=== PATIENT | female | born 1930 | race African-American/Black ===

== ENCOUNTER 2017-05-31 16:12 | Emergency (ER) | payer MEDICARE, OTHER ==
--- NOTE | 2017-05-31 17:18 | ER Document Report ---
ED Medical Screen (RME) - General Chief Complaint: Urinary Problem Stated Complaint: URINARY PROBLEM Time Seen by Provider: 05/31/17 17:11 Notes: 86-year-old female patient with a 3 month history of burning on urination. She reports it comes and goes and it does not occur every day. She has seen her primary care provider several times, he has done physical exam of the genitourinary system, but no cultures by history. She did see a urologist, Dr. Anton a month ago and I would feel certain he would have cultured the urine. We do not know if an extended 4-5 day culture was ever done or just the standard to do a culture. She just finished a 10 day course of Keflex yesterday. She reports the burning on urination is worse today than usual, so a yeast introitus could be contributing to her symptoms today. A catheterized urine will be collected and the patient will go to the back for more thorough exam including a visual genital exam. I have greeted and performed a rapid initial assessment of this patient. A comprehensive ED assessment and evaluation of the patient, analysis of test results and completion of the medical decision making process will be conducted by additional ED providers. TRAVEL OUTSIDE OF THE [place] IN LAST 30 DAYS: No - Related Data Allergies/Adverse Reactions: No Known Allergies Allergy (Unverified 11/09/15 12:07) Past Medical History - Social History Chew tobacco use (# tins/day): No Frequency of alcohol use: None Drug Abuse: None - Past Medical History Cardiac Medical History: Reports: Hx Hypercholesterolemia, Hx Hypertension Denies: Hx Atrial Fibrillation Renal/ Medical History: Denies: Hx Peritoneal Dialysis Psychiatric Medical History: Denies: Hx Depression Past Surgical History: Reports: Hx Hysterectomy, Hx Orthopedic Surgery
[2017-05-31 18:15] LABS: APPEARANCE,URINE CLEAR; BILIRUBIN,URINE NEGATIVE (NEGATIVE); COLOR,URINE YELLOW; GLUCOSE, URINE NEGATIVE (NEGATIVE); KETONES,URINE NEGATIVE (NEGATIVE); LEUKOCYTE ESTERASE,URINE NEGATIVE (NEGATIVE); NITRITE,URINE NEGATIVE (NEGATIVE); PROTEIN,URINE NEGATIVE (NEGATIVE); URINE SPECIFIC GRAVITY 1.012; UROBILINOGEN,URINE NEGATIVE mg/dL (<2.0)
--- NOTE | 2017-05-31 18:29 | ER Document Report ---
ED General - General Chief Complaint: Urinary Problem Stated Complaint: URINARY PROBLEM Time Seen by Provider: 05/31/17 17:11 Notes: 86-year-old female presents with 3 months of dysuria. Constant. She has seen her primary care doctor, as well as a urologist who could not tell her what was wrong. She denies blood in her urine low back pain nausea vomiting fever. The symptoms have been constant. She has not had any difficulty with eating. She denies vaginal bleeding irritation or yeast. TRAVEL OUTSIDE OF THE [place] IN LAST 30 DAYS: No - Related Data Allergies/Adverse Reactions: No Known Allergies Allergy (Unverified 11/09/15 12:07) Past Medical History - Social History Smoking Status: Former Smoker Chew tobacco use (# tins/day): No Frequency of alcohol use: None Drug Abuse: None Family History: None Patient has suicidal ideation: No Patient has homicidal ideation: No - Past Medical History Cardiac Medical History: Reports: Hx Hypercholesterolemia, Hx Hypertension Denies: Hx Atrial Fibrillation Renal/ Medical History: Denies: Hx Peritoneal Dialysis Psychiatric Medical History: Denies: Hx Depression Past Surgical History: Reports: Hx Hysterectomy, Hx Orthopedic Surgery Review of Systems - Review of Systems Notes: REVIEW OF SYSTEMS GEN: Denies fever, chills, weight loss ENT: Denies sore throat, nasal discharge, ear pain EYES: Denies blurry vision, eye pain, discharge CV: Denies chest pain, palpitations, edema RESP: Denies cough, shortness of breath, wheezing GI: Denies abdominal pain, nausea, vomiting, diarrhea MSK: Denies joint pain/swelling, edema, SKIN: Denies rash, skin lesions LYMPH: Denies swollen glands/lymph nodes NEURO: Denies headache, focal weakness or numbness, dizziness PSYCH: Denies depression, suicidal or homicidal ideation PHYSICAL EXAMINATION General: No acute distress, well-nourished Head: Atraumatic, normocephalic ENT: Mouth normal, oropharynx moist, no exudates or tonsillar enlargement Eyes: Conjunctiva normal, pupils equal, lids normal Neck: No JVD, supple, no guarding CVS: Normal rate, regular rhythm, no murmurs Resp: No resp distress, equal and normal breath sounds bilaterally GI: Nondistended, soft, no tenderness to palpation, no rebound or guarding Ext: No deformities, no edema, normal range of motion in upper and lower ext Back: No CVA or midline TTP Skin: No rash, warm Lymphatic: No lymphadeopathy noted Neuro: Awake, alert. Face symmetric. GCS 15. Course - Re-evaluation Re-evalutation: 05/31/17 18:23 Patient presents with chronic dysuria status post evaluation by urology with no clear's cause. She was evaluated in triage and a catheterized urine was obtained. It shows some casts but no white cells. Culture has been sent. Her exam is reassuring with no fever flank tenderness or abdominal tenderness. She does not describe any vaginal irritation or pain on wiping so I think that a yeast or external infection is also unlikely. She will follow-up with her urologist and primary care provider. Insert discharge 05/31/17 18:29 05/31/17 18:29 I have discussed with the patient there likely diagnosis, aftercare plan, follow -up plans and my usual and customary return precautions. They verbalized understanding of this. - Laboratory Laboratory results interpreted by me: 05/31/17 17:40 Urine Blood SMALL H Discharge - Discharge Clinical Impression: Dysuria Condition: Good Disposition: HOME, SELF-CARE Additional Instructions: We were unable to find a dangerous cause of your burning on urination. You have had testing done at your urologist and we did more today but did not find an infection to treat. Please follow-up with your specialist regarding ongoing diagnosis and treatment of your symptoms.
[2017-05-31 18:48] VITALS: BP 143/71
== END 2017-05-31 18:48 | disposition home or self-care (01) ==
LOC: ER 16:12
DX: R30.0 Dysuria (principal); R39.198 Other difficulties with micturition; Z87.891 Personal history of nicotine dependence
CPT/HCPCS: 51701; 81001; 87086; 99283

== ENCOUNTER 2018-03-09 16:41 | Emergency (ER) | payer MEDICARE, OTHER ==
--- NOTE | 2018-03-09 16:55 | ER Document Report ---
ED Medical Screen (RME) - General Chief Complaint: Numbness of Face Stated Complaint: FACIAL NUMBNESS Time Seen by Provider: 03/09/18 16:52 Mode of Arrival: Ambulatory Information source: Patient, Relative, [facility] Records Notes: 87-year-old female presents with complaint of left-sided numbness of her face, fingers and left lower extremity. Patient states that symptoms started at 12: 00. She does report prior similar symptoms after a "mini stroke". Patient denies headache, blurred vision, slurred speech, difficulty with ambulation. I have greeted and performed a rapid initial assessment of this patient. A comprehensive ED assessment and evaluation of the patient, analysis of test results and completion of medical decision making process we will be contacted by additional ED providers. General; no acute distress Neuro; cranial nerves II through XII intact. Patient alert awake. Respiratory; no increased work of breathing TRAVEL OUTSIDE OF THE [place] IN LAST 30 DAYS: No - HPI Onset: Just prior to arrival Onset/Duration: Gradual, Persistent Quality of pain: No pain Associated Symptoms: denies: Chest pain, Headache, Shortness of breath Exacerbated by: Denies Relieved by: Denies Similar symptoms previously: Yes Recently seen / treated by doctor: Yes - Related Data Smoking: Non-smoker Frequency of alcohol use: None Drug Abuse: None Allergies/Adverse Reactions: No Known Allergies Allergy (Verified 03/09/18 16:43) Past Medical History - Past Medical History Cardiac Medical History: Reports: Hx Hypercholesterolemia, Hx Hypertension Denies: Hx Atrial Fibrillation Renal/ Medical History: Denies: Hx Peritoneal Dialysis Psychiatric Medical History: Denies: Hx Depression Past Surgical History: Reports: Hx Hysterectomy, Hx Orthopedic Surgery Doctor's Discharge - Discharge Referrals: TOMA DIXON MD [Primary Care Provider] - Follow up as needed
--- NOTE | 2018-03-09 17:25 | ER Document Report ---
ED General - General Chief Complaint: Numbness of Face Stated Complaint: FACIAL NUMBNESS Time Seen by Provider: 03/09/18 16:52 Mode of Arrival: Ambulatory Information source: Patient Notes: 87-year-old female presents emergency department with complaints of left facial , left upper extremity, and left lower extremity numbness and tingling with associated Left sided upper and lower extremity weakness. Patient says that she has chronic Left sided numbness/tingling from a previous stroke 2 years ago. This is not new today. Patient states that her left upper and lower extremity weakness started around 12-12:30 this afternoon. Patient states that the weakness resolved on its own and then presented again around 330. Patient states that the weakness is resolving currently. She states that it is improving. Patient denies being on any blood thinners. She states that she does take an aspirin daily. Patient denies any new trauma or injury. Patient denies any chest pain or shortness of breath. TRAVEL OUTSIDE OF THE [place] IN LAST 30 DAYS: No - HPI Onset: Other - 12- 12:30 then again at 3:30 Severity: Mild Pain Level: 1 Associated symptoms: None Exacerbated by: Denies Relieved by: Denies Similar symptoms previously: Yes Recently seen / treated by doctor: No - Related Data Allergies/Adverse Reactions: No Known Allergies Allergy (Verified 03/09/18 16:43) Past Medical History - General Information source: Patient, Relative, [facility] Records - Social History Smoking Status: Former Smoker Frequency of alcohol use: None Drug Abuse: None Family History: None, Reviewed & Not Pertinent - Past Medical History Cardiac Medical History: Reports: Hx Hypercholesterolemia, Hx Hypertension Denies: Hx Atrial Fibrillation Renal/ Medical History: Denies: Hx Peritoneal Dialysis Psychiatric Medical History: Denies: Hx Depression Past Surgical History: Reports: Hx Hysterectomy, Hx Orthopedic Surgery Review of Systems - Review of Systems Constitutional: No symptoms reported EENT: No symptoms reported Cardiovascular: No symptoms reported Respiratory: No symptoms reported Gastrointestinal: No symptoms reported Genitourinary: No symptoms reported Musculoskeletal: No symptoms reported Skin: No symptoms reported Neurological/Psychological: Numbness, Tingling -: Yes All other systems reviewed and negative Physical Exam - Notes Notes: PHYSICAL EXAMINATION: GENERAL: Well-appearing, well-nourished and in no acute distress. HEAD: Atraumatic, normocephalic. EYES: Pupils equal round and reactive to light, extraocular movements intact, conjunctiva are normal. ENT: Nares patent, oropharynx clear without exudates. Moist mucous membranes. NECK: Normal range of motion, supple without lymphadenopathy LUNGS: Breath sounds clear to auscultation bilaterally and equal. No wheezes rales or rhonchi. HEART: Regular rate and rhythm without murmurs ABDOMEN: Soft, nontender, nondistended abdomen. No guarding, no rebound. No masses appreciated. Female : deferred Musculoskeletal: Normal range of motion, no pitting or edema. No cyanosis. NEUROLOGICAL: Cranial nerves grossly intact. Normal speech, normal gait. Altered sensation in the LUE and LLE. PSYCH: Normal mood, normal affect. SKIN: Warm, Dry, normal turgor, no rashes or lesions noted. Course - Re-evaluation Re-evalutation: 03/09/18 17:25 NIH stroke score of 1. EKG: Ventricular rate 57, NV interval 148, QRS duration 100, QTc 409, sinus rhythm, left anterior fascicular block, no ischemic changes. 03/09/18 18:27 Discussed results with the patient. Old strokes appreciated on the head CT. I told the patient I wanted to admit her for a stroke workup. Patient declines admission. Wants to go home. I told the patient she would need to leave AGAINST MEDICAL ADVICE. Patient has decision-making capacity. She understands that her condition may worsen or she may by leaving AGAINST MEDICAL ADVICE. Patient instructed to follow-up with her primary care physician this week, to continue taking her medications as directed, and to return to the emergency department immediately for any worsening symptoms. Patient is agreeable with plan of care - Laboratory Result Diagrams: 03/09/18 17:19 03/09/18 17:19 Laboratory results interpreted by me: 03/09/18 03/09/18 17:19 17:19 WBC 3.1 L RBC 3.34 L Hgb 10.3 L Hct 30.8 L RDW 15.4 H Absolute Neutrophils 1.3 L BUN 34 H Creatinine 1.43 H Est GFR ( Amer) 42 L Est GFR (Non-Af Amer) 35 L Direct Bilirubin 0.6 H Discharge - Discharge Clinical Impression: CVA (cerebral vascular accident) Qualifiers: CVA mechanism: unspecified Qualified Code(s): I63.9 - Cerebral infarction, unspecified Condition: Serious Disposition: AGAINST MEDICAL ADVICE Referrals: TOMA DIXON MD [Primary Care Provider] - Follow up as needed
--- NOTE | 2018-03-09 17:29 | RADIOLOGY REPORT (SQ) ---
EXAM DESCRIPTION: CT HEAD WITHOUT COMPLETED DATE/TIME: 03/09/2018 5:04 pm REASON FOR STUDY: Left-sided paresthesia COMPARISON: CT brain 11/09/2015 MRI brain 11/09/2015 TECHNIQUE: Axial images acquired through the brain without intravenous contrast. Images reviewed wi th bone, brain and subdural windows. Additional sagittal and coronal reconstructions were generated. Images stored on PACS. All CT scanners at this facility use dose modulation, iterative reconstruction, and/or weight based d osing when appropriate to reduce radiation dose to as low as reasonably achievable (ALARA). [facility]: Dose Right [facility]: CareDose [facility]: Dose Right [facility]: Teradose 4D [facility]: [employer] RADIATION DOSE: CT Rad equipment meets quality standard of care and radiation dose reduction techniq ues were employed. CTDIvol: 53.2 mGy. DLP: 1044 mGy-cm. mGy. LIMITATIONS: None. FINDINGS: VENTRICLES: Normal size and contour. CEREBRUM: Since the prior imaging in 2015, patient has developed a chronic appearing right inferior t emporal lobe infarct extending into the occipital cortex and subcortical white matter. This best jackeline wn on axial images 15-17. Old lacunar infarcts in the right thalamus. Moderate small vessel ischemic change in the bifrontal and biparietal white matter. No CT evidence of acute large territory ischemic change, acute intracranial hemorrhage, mass effect, or midline shift. CEREBELLUM: No masses. No hemorrhage. No alteration of density. No evidence for acute infarction. EXTRAAXIAL SPACES: No fluid collections. No masses. ORBITS AND GLOBE: No intra- or extraconal masses. Normal contour of globe without masses. CALVARIUM: No fracture. PARANASAL SINUSES: No fluid or mucosal thickening. SOFT TISSUES: No mass or hematoma. OTHER: No other significant finding. IMPRESSION: Old infarcts in the right inferior temporal lobe and occipital lobe, old lacunar infarct s in the right thalamus. EVIDENCE OF ACUTE STROKE: NO. COMMENT: Quality ID # [id number]: Final reports with documentation of one or more dose reduction techniques (e.g., Automated exposure control, adjustment of the mA and/or kV according to patient size, use of iterative reconstruction technique) TECHNICAL DOCUMENTATION: JOB ID: [id number] [employer]- All Rights Reserved Reading location - IP/workstation name: [email or web address]
--- NOTE | 2018-03-09 17:30 | RADIOLOGY REPORT (SQ) ---
EXAM DESCRIPTION: CHEST SINGLE VIEW COMPLETED DATE/TIME: 03/09/2018 5:19 pm REASON FOR STUDY: Left-sided paresthesia COMPARISON: AP chest 11/09/2015 EXAM PARAMETERS: NUMBER OF VIEWS: One view. TECHNIQUE: Single frontal radiographic view of the chest acquired. RADIATION DOSE: NA LIMITATIONS: None. FINDINGS: LUNGS AND PLEURA: No opacities, masses or pneumothorax. No pleural effusion. MEDIASTINUM AND HILAR STRUCTURES: No masses. Contour normal. HEART AND VASCULAR STRUCTURES: Heart normal in size. Normal vasculature. BONES: No acute findings. Osteoarthritis both shoulders HARDWARE: None in the chest. OTHER: No other significant finding. IMPRESSION: NO ACUTE RADIOGRAPHIC FINDING IN THE CHEST. TECHNICAL DOCUMENTATION: JOB ID: [id number] [employer]- All Rights Reserved Reading location - IP/workstation name: [email or web address]
[2018-03-09 17:31] LABS: ABSOLUTE LYMPHOCYTES (AUTO) 1.3 10^3/uL (0.5-4.7); ABSOLUTE MONOCYTES (AUTO) 0.4 10^3/uL (0.1-1.4); ABSOLUTE NEUT (AUTO) 1.3 10^3/uL (1.7-8.2); BASOPHILS % (AUTO) 0.3 % (0-2); EOSINOPHILS % (AUTO) 1.2 % (0-6); HEMATOCRIT 30.8 % (36.0-47.0); HEMOGLOBIN 10.3 g/dL (12.0-15.5); LYMPHOCYTES % (AUTO) 43.3 % (13-45); MEAN CORPUSCULAR HEMOGLOBIN 30.7 pg (27.0-33.4); MEAN CORPUSCULAR HGB CONC 33.3 g/dL (32.0-36.0); MEAN CORPUSCULAR VOLUME 92 fl (80-97); PLATELET COUNT 251 10^3/uL (150-450); RED BLOOD COUNT 3.34 10^6/uL (3.72-5.28); RED CELL DISTRIBUTION WIDTH 15.4 % (11.5-14.0); SEGMENTED NEUTROPHILS % (AUTO) 42.2 % (42-78); TOTAL CELLS COUNTED % (AUTO) 100 %; WHITE BLOOD COUNT 3.1 10^3/uL (4.0-10.5)
[2018-03-09 17:33] LABS: INTERNATIONAL RATION (INR) 0.99; PROTHROMBIN TIME 13.6 SEC (11.4-15.4)
[2018-03-09 17:34] LABS: PARTIAL THROMBOPLASTIN TIME 30.7 SEC (23.5-35.8)
[2018-03-09 17:51] LABS: ALANINE AMINOTRANSFERASE 12 U/L (9-52); ALBUMIN 4.1 g/dL (3.5-5.0); ALKALINE PHOSPHATASE 75 U/L (38-126); ANION GAP 9 (5-19); ASPARTATE AMINO TRANSFERASE 28 U/L (14-36); BILIRUBIN,DIRECT 0.6 mg/dL (0.0-0.4); BILIRUBIN,TOTAL 0.7 mg/dL (0.2-1.3); BLOOD UREA NITROGEN 34 mg/dL (7-20); CALCIUM 9.1 mg/dL (8.4-10.2); CARBON DIOXIDE 25 mmol/L (22-30); CHLORIDE 106 mmol/L (98-107); CREATINE KINASE 65 U/L (30-135); GLUCOSE 106 mg/dL (75-110); POTASSIUM 4.9 mmol/L (3.6-5.0); SODIUM 140.4 mmol/L (137-145)
[2018-03-09 18:01] LABS: CREATINE KINASE MB 0.53 ng/mL (<4.55)
[2018-03-09 18:04] LABS: TROPONIN I < 0.012 ng/mL
[2018-03-09 19:21] VITALS: BP 128/72
--- NOTE | 2018-03-09 19:33 | EKG REPORT ---
SEVERITY:- ABNORMAL ECG - SINUS RHYTHM LAD, CONSIDER LEFT ANTERIOR FASCICULAR BLOCK BORDERLINE R WAVE PROGRESSION, ANTERIOR LEADS : Confirmed by: Jennifer Brandt 09-Mar-2018 19:33:07
== END 2018-03-09 19:21 | disposition left against medical advice (07) ==
LOC: ER 16:41
DX: I63.9 Cerebral infarction, unspecified (principal); R20.0 Anesthesia of skin; R53.1 Weakness; Z87.891 Personal history of nicotine dependence; I10 Essential (primary) hypertension
CPT/HCPCS: 36415; 70450; 71045; 80053; 82550; 82553; 82962; 84484; 85025; 85610; 85730; 93005; 93010; 99285

== ENCOUNTER 2018-08-13 14:28 | Emergency (ER) | payer MEDICARE, OTHER ==
--- NOTE | 2018-08-13 17:01 | ER Document Report ---
ED Medical Screen (RME) - General Chief Complaint: Pain Stated Complaint: RIGHT SIDE PAIN Time Seen by Provider: 08/13/18 16:52 Primary Care Provider: TOMA DIXON MD [Primary Care Provider] - Follow up as needed Mode of Arrival: Wheelchair Notes: Patient presents to the emergency department with reports of history of stroke 2 years ago. She reports she has had nerve pain to her left side since that time. She reports increased pain to her left hand. She also reports some numbness in her left face. She complains that the pain is worse. She also complains of dizziness. Patient reports she has been seen by her provider Dr. Dixon who prescribed her some medication that made the dizziness worse. Patient quit taking it. Patient is here because she is worried she has had another stroke. She reports the numbness to her face happened at approximately 2:00 this afternoon. I have greeted and performed a rapid initial assessment of this patient. A comprehensive ED assessment and evaluation of the patient, analysis of test results and completion of the medical decision making process will be conducted by additional ED providers. TRAVEL OUTSIDE OF THE [place] IN LAST 30 DAYS: No - HPI Onset: Other - Related Data Allergies/Adverse Reactions: No Known Allergies Allergy (Verified 08/13/18 14:29) Past Medical History - Past Medical History Cardiac Medical History: Reports: Hx Hypercholesterolemia, Hx Hypertension Denies: Hx Atrial Fibrillation Renal/ Medical History: Denies: Hx Peritoneal Dialysis Psychiatric Medical History: Denies: Hx Depression Past Surgical History: Reports: Hx Hysterectomy, Hx Orthopedic Surgery Physical Exam - Vital signs Vitals: Temp Pulse Resp BP Pulse Ox 97.9 F 61 16 155/70 H 100 08/13/18 14:35 08/13/18 14:35 08/13/18 14:35 08/13/18 14:35 08/13/18 14:35 Course - Vital Signs Vital signs: Temp Pulse Resp BP Pulse Ox 97.9 F 61 16 155/70 H 100 08/13/18 14:35 08/13/18 14:35 08/13/18 14:35 08/13/18 14:35 08/13/18 14:35 Doctor's Discharge - Discharge Referrals: TOMA DIXON MD [Primary Care Provider] - Follow up as needed
[2018-08-13 17:37] LABS: APPEARANCE,URINE SLIGHTLY-CLOUDY; BILIRUBIN,URINE NEGATIVE (NEGATIVE); COLOR,URINE STRAW; GLUCOSE, URINE NEGATIVE (NEGATIVE); KETONES,URINE NEGATIVE (NEGATIVE); LEUKOCYTE ESTERASE,URINE LARGE (NEGATIVE); NITRITE,URINE NEGATIVE (NEGATIVE); PROTEIN,URINE NEGATIVE (NEGATIVE); URINE SPECIFIC GRAVITY 1.004; UROBILINOGEN,URINE NEGATIVE mg/dL (<2.0)
[2018-08-13 18:12] LABS: ABSOLUTE LYMPHOCYTES (AUTO) 1.1 10^3/uL (0.5-4.7); ABSOLUTE MONOCYTES (AUTO) 0.3 10^3/uL (0.1-1.4); ABSOLUTE NEUT (AUTO) 1.6 10^3/uL (1.7-8.2); BASOPHILS % (AUTO) 0.3 % (0-2); EOSINOPHILS % (AUTO) 0.9 % (0-6); HEMATOCRIT 32.8 % (36.0-47.0); HEMOGLOBIN 10.9 g/dL (12.0-15.5); LYMPHOCYTES % (AUTO) 34.9 % (13-45); MEAN CORPUSCULAR HGB CONC 33.3 g/dL (32.0-36.0); MEAN CORPUSCULAR VOLUME 93 fl (80-97); MONOCYTES % (AUTO) 10.3 % (3-13); PLATELET COUNT 265 10^3/uL (150-450); RED BLOOD COUNT 3.52 10^6/uL (3.72-5.28); RED CELL DISTRIBUTION WIDTH 14.4 % (11.5-14.0); SEGMENTED NEUTROPHILS % (AUTO) 53.6 % (42-78); TOTAL CELLS COUNTED % (AUTO) 100 %; WHITE BLOOD COUNT 3.1 10^3/uL (4.0-10.5)
--- NOTE | 2018-08-13 18:26 | EKG REPORT ---
SEVERITY:- ABNORMAL ECG - SINUS RHYTHM LEFT ATRIAL ABNORMALITY LEFT AXIS DEVIATION =LAFB BORDERLINE R WAVE PROGRESSION, ANTERIOR LEADS : Confirmed by: Alex Kraft MD 13-Aug-2018 18:25:29
[2018-08-13 18:34] LABS: ALANINE AMINOTRANSFERASE 13 U/L (9-52); ALBUMIN 4.3 g/dL (3.5-5.0); ALKALINE PHOSPHATASE 92 U/L (38-126); ANION GAP 12 (5-19); ASPARTATE AMINO TRANSFERASE 31 U/L (14-36); BILIRUBIN,DIRECT 0.3 mg/dL (0.0-0.4); BILIRUBIN,TOTAL 0.5 mg/dL (0.2-1.3); BLOOD UREA NITROGEN 22 mg/dL (7-20); CALCIUM 9.4 mg/dL (8.4-10.2); CARBON DIOXIDE 25 mmol/L (22-30); CHLORIDE 102 mmol/L (98-107); GLUCOSE 96 mg/dL (75-110); POTASSIUM 4.2 mmol/L (3.6-5.0); SODIUM 138.6 mmol/L (137-145); TOTAL PROTEIN 7.3 g/dL (6.3-8.2)
--- NOTE | 2018-08-13 19:20 | ER Document Report ---
ED General - General Chief Complaint: Pain Stated Complaint: RIGHT SIDE PAIN Time Seen by Provider: 08/13/18 19:20 Primary Care Provider: TOMA DIXON MD [Primary Care Provider] - Follow up as needed Mode of Arrival: Ambulatory Information source: Patient, Relative Notes: HISTORY OF PRESENT ILLNESS: Patient is a 88-year-old female with a past medical history of hypertension, hyperlipidemia, and stroke who presents with intermittent tingling to the left arm that is reminiscent of symptoms she had with her previous stroke. Location: Left arm Onset: 1 day ago Provocation: None Quality: Numbness/tingling Radiation: None Severity: Mild Timing: Intermittent Associated symptoms: No fevers or chills, cough or congestion, chest pain or shortness of breath, no ataxia or aphasia REVIEW OF SYSTEMS: CONSTITUTIONAL : Denies fever or chills, no sweats. Denies recent illness. EENT: Denies eye, ear, throat, or mouth pain or symptoms. Denies nasal or sinus congestion. CARDIOVASCULAR: Denies chest pain. RESPIRATORY: Denies cough, cold, or chest congestion. Denies shortness of breath, difficulty breathing, or wheezing. GASTROINTESTINAL: Denies abdominal pain. Denies nausea, vomiting, or diarrhea. Denies constipation. GENITOURINARY: Denies difficulty urinating, painful urination, burning, frequency, or blood in urine. Denies vaginal bleeding, abnormal or irregular periods. MUSCULOSKELETAL: Denies neck or back pain or joint pain or swelling. SKIN: Denies rash or skin lesions. HEMATOLOGIC : Denies easy bruising or bleeding. LYMPHATIC: Denies swollen, enlarged glands. NEUROLOGICAL: Positive for slight paresthesias of the left hand. Denies altered mental status or loss of consciousness. Denies headache. Denies weakness or paralysis or loss of use of either side. Denies problems with gait or speech. PSYCHIATRIC: Denies anxiety or stress or depression. All other systems reviewed and negative. PHYSICAL EXAMINATION: GENERAL: Well-appearing, well-nourished and in no acute distress. HEAD: Atraumatic, normocephalic. No scalp deformity, depression, or crepitance. EYES: Pupils are 3 mm and equal/round/reactive to light, extraocular movements intact, sclera anicteric, conjunctiva are normal. ENT: Nares patent bilaterally, oropharynx clear without exudates or palatal petechia. Moist mucous membranes. No tonsil hypertrophy. NECK: Normal range of motion, supple without lymphadenopathy. LUNGS: Breath sounds present, equal, and clear to auscultation bilaterally. No wheezes, rales, or rhonchi. HEART: Regular rate and rhythm without murmurs, rubs, or gallops. 2+ peripheral pulses. Normal capillary refill. ABDOMEN: Soft, nontender, nondistended. Normoactive bowel sounds. No guarding, no rebound. No masses appreciated. BACK: Normal contour, no midline tenderness. Rectal exam deferred. PELVC: Deferred. EXTREMITIES: Normal range of motion, no pitting or edema. No cyanosis. NEUROLOGICAL: No focal neurological deficits. Moves all extremities spontaneously and on command. PSYCH: Normal mood, normal affect. No suicidal thoughts/ideations. No homocidal thoughts/ideations. No hallucinations. SKIN: Warm, dry, normal turgor, no rashes or lesions noted. ASSESSMENT AND PLAN: This patient is a 88-year-old female who presents with subjective paresthesias to the left upper extremity, neurological exam is completely intact. 1. Will obtain labs, urine, and CT head. 2. Will reassess for discharge when workup is complete. TRAVEL OUTSIDE OF THE [place] IN LAST 30 DAYS: No - Related Data Allergies/Adverse Reactions: No Known Allergies Allergy (Verified 08/13/18 14:29) Past Medical History - General Information source: Patient, Relative - Social History Smoking Status: Never Smoker Chew tobacco use (# tins/day): No Frequency of alcohol use: None Drug Abuse: None Lives with: Family Family History: None, Reviewed & Not Pertinent Patient has suicidal ideation: No Patient has homicidal ideation: No - Past Medical History Cardiac Medical History: Reports: Hx Hypercholesterolemia, Hx Hypertension Denies: Hx Atrial Fibrillation Pulmonary Medical History: Reports: None EENT Medical History: Reports: None Neurological Medical History: Reports: Hx Cerebrovascular Accident Endocrine Medical History: Reports: None Renal/ Medical History: Reports: None. Denies: Hx Peritoneal Dialysis Malignancy Medical History: Reports: None GI Medical History: Reports: None Musculoskeletal Medical History: Reports None Skin Medical History: Reports None Psychiatric Medical History: Reports: None Denies: Hx Depression Traumatic Medical History: Reports: None Infectious Medical History: Reports: None Past Surgical History: Reports: Hx Hysterectomy, Hx Orthopedic Surgery - Immunizations Immunizations up to date: Yes Hx Diphtheria, Pertussis, Tetanus Vaccination: Yes History of Influenza Vaccine for 03/2017 - 08/2017 Season: Yes Physical Exam - Vital signs Vitals: Temp Pulse Resp BP Pulse Ox 97.9 F 61 16 155/70 H 100 08/13/18 14:35 08/13/18 14:35 08/13/18 14:35 08/13/18 14:35 08/13/18 14:35 Course - Re-evaluation Re-evalutation: 08/13/18 20:44 CT scan of the head is without acute pathology. Labs otherwise unremarkable. Urinalysis shows continued evidence of UTI, given recent treatment with Cipro, will switch to Keflex and discharged home with return precautions and follow-up as needed. Patient along with her daughter at bedside voiced both understanding and agreed with the plan. - Vital Signs Vital signs: Temp Pulse Resp BP Pulse Ox 97.9 F 63 17 174/83 H 100 08/13/18 14:35 08/13/18 21:03 08/13/18 21:03 08/13/18 21:03 08/13/18 21:03 - Laboratory Result Diagrams: 08/13/18 17:56 08/13/18 17:56 Laboratory results interpreted by me: 08/13/18 08/13/18 08/13/18 17:13 17:56 17:56 WBC 3.1 L RBC 3.52 L Hgb 10.9 L Hct 32.8 L RDW 14.4 H Absolute Neutrophils 1.6 L BUN 22 H Est GFR ( Amer) 59 L Est GFR (Non-Af Amer) 49 L Urine Blood SMALL H Ur Leukocyte Esterase LARGE H - Diagnostic Test Radiology reviewed: Image reviewed, Reports reviewed - EKG Interpretation by Me EKG shows normal: Sinus rhythm Rate: Normal Rhythm: NSR [place]/QRS: No: Right axis deviation, Left axis deviation, RBBB, LBBB, IVCD, LAHB/LAFB, LPHB/LPFB, Bifasicular block Voltage: No: Increased voltage, Consistant with LVH, Decreased voltage, Throughout, Limb leads P Waves: No: VICTOR MANUEL, LAE, Absent, AV Dissociation, Other Heart block present: No: 1st Degree, Mobitz 1, Mobitz 2, CHB (3rd degree block) When compared to previous EKG there are: No significant change Discharge - Discharge Clinical Impression: Urinary tract infection Qualifiers: Urinary tract infection type: acute cystitis Hematuria presence: with hematuria Qualified Code(s): N30.01 - Acute cystitis with hematuria Condition: Good Disposition: HOME, SELF-CARE Instructions: Cephalexin ([facility]), Urinary Tract Infection ([facility]) Additional Instructions: You have been evaluated in the Emergency Department for tingling in your left side that is most likely caused by a urinary tract infection. While here, you had blood work and a CAT scan of your head that were normal and it is now safe to be discharged home. Please follow-up with your primary physician as instructed in 1 week to be retested. Return to the Emergency Department if you experience chest pain, shortness of breath, confusion/disorientation, or any other concerning symptoms. Prescriptions: Cephalexin Monohydrate [Keflex 500 mg Capsule] 500 mg PO Q6H 7 Days #28 capsule Referrals: TOMA DIXON MD [Primary Care Provider] - Follow up as needed Print Language: Vincentian
--- NOTE | 2018-08-13 19:25 | RADIOLOGY REPORT (SQ) ---
EXAM DESCRIPTION: CT HEAD WITHOUT COMPLETED DATE/TIME: 08/13/2018 6:36 pm REASON FOR STUDY: dizzy, numbness, hx stroke, worried another stroke COMPARISON: 03/09/2018 TECHNIQUE: Axial images acquired through the brain without intravenous contrast. Images reviewed wi th bone, brain and subdural windows. Additional sagittal and coronal reconstructions were generated. Images stored on PACS. All CT scanners at this facility use dose modulation, iterative reconstruction, and/or weight based d osing when appropriate to reduce radiation dose to as low as reasonably achievable (ALARA). [facility]: Dose Right [facility]: CareDose [facility]: Dose Right [facility]: Teradose 4D [facility]: [employer] RADIATION DOSE: CT Rad equipment meets quality standard of care and radiation dose reduction techniq ues were employed. CTDIvol: 53.2 mGy. DLP: 1017 mGy-cm. mGy. LIMITATIONS: None. FINDINGS: VENTRICLES: Normal size and contour. CEREBRUM: Small old right occipital infarction. No mass. No midline shift. No hemorrhage. Areas of low density in the white matter most likely chronic small vessel ischemic changes. CEREBELLUM: No masses. No hemorrhage. No alteration of density. No evidence for acute infarction. EXTRAAXIAL SPACES: No fluid collections. No masses. ORBITS AND GLOBE: No intra- or extraconal masses. Normal contour of globe without masses. CALVARIUM: No fracture. PARANASAL SINUSES: No fluid or mucosal thickening. SOFT TISSUES: No mass or hematoma. OTHER: No other significant finding. IMPRESSION: Old right occipital infarction. Chronic microvascular ischemia. No acute intracranial imaging findings. EVIDENCE OF ACUTE STROKE: NO. COMMENT: Quality ID # [id number]: Final reports with documentation of one or more dose reduction techniques (e.g., Automated exposure control, adjustment of the mA and/or kV according to patient size, use of iterative reconstruction technique) TECHNICAL DOCUMENTATION: JOB ID: [id number] [employer]- All Rights Reserved Reading location - IP/workstation name: [email or web address]
[2018-08-13] MEDS ORDERED: CEPHALEXIN 500 MG CAPSULE PO ONE (20:20)
[2018-08-13 21:06] VITALS: BP 174/83
== END 2018-08-13 21:06 | disposition home or self-care (01) ==
LOC: ER 14:28
DX: N30.01 Acute cystitis with hematuria (principal); R20.0 Anesthesia of skin; M79.602 Pain in left arm; I10 Essential (primary) hypertension
CPT/HCPCS: 93005; 99284; 36415; 87086; 85025; 87088; 80053; 81001; 87186; 70450; 93010; A9270

== ENCOUNTER 2020-06-30 12:34 | Outpatient (CLI) | payer MEDICARE, OTHER ==
[~2020-06-30 12:34] MED LIST: FERRIC CARBOXYMALTOSE 750 MG in NORMAL SALINE 250 ML IV PRN
[2020-06-30 12:59] VITALS: BP 133/64
== END 2020-06-30 14:00 | disposition home or self-care (01) ==
LOC: II 12:34 → 5TH 12:36 → II 14:00
PROVIDERS: ATTEND Internal Medicine Nephrology
DX: D50.8 Other iron deficiency anemias (principal)
CPT/HCPCS: 96365; J7050; J1439